=== PATIENT | male | born 1995 | race Caucasian/White ===

== ENCOUNTER 2022-01-17 22:38 | Emergency (ER) | payer BC ==
[2022-01-17] MEDS ORDERED: PREDNISONE20 M1 PO (23:04)
== END 2022-01-17 23:31 | disposition home or self-care (01) ==
LOC: ED 22:38
DX: L23.7 Allergic contact dermatitis due to plants, except food (principal)

== ENCOUNTER 2022-01-22 16:13 | Emergency (ER) | payer BC ==
[~2022-01-22] VITALS: Wt 117.9 kg
[~2022-01-22 16:13] MED LIST: PREDNISONE20 M1 PO
== END 2022-01-22 22:43 | disposition left against medical advice (07) ==
LOC: ED 16:13
DX: L23.7 Allergic contact dermatitis due to plants, except food (principal); Z53.21 Procedure and treatment not carried out due to patient leaving prior to being seen by health care provider

== ENCOUNTER 2022-01-24 17:58 | Emergency (ER) | payer BC | END 2022-01-24 19:22 | disposition left against medical advice (07) | LOC: ED 17:58 | DX: Z53.21 Procedure and treatment not carried out due to patient leaving prior to being seen by health care provider (principal) ==

== ENCOUNTER 2022-10-16 20:08 | Emergency (ER) | payer OTHER, BC ==
[2022-10-16] MEDS ORDERED: NAPROXEN250 MG PO (20:58)
[2022-10-16] MEDS ORDERED: METHOCARBAMOL750 M1 PO (20:58)
== END 2022-10-16 21:01 | disposition home or self-care (01) ==
LOC: ED 20:08
DX: S46.312A Strain of muscle, fascia and tendon of triceps, left arm, initial encounter (principal); X50.9XXA Other and unspecified overexertion or strenuous movements or postures, initial encounter; Y93.89 Activity, other specified; Y92.89 Other specified places as the place of occurrence of the external cause; Y99.8 Other external cause status

== ENCOUNTER 2023-01-03 15:02 | Emergency (ER) | payer BC, OTHER ==
[~2023-01-03 15:02] MED LIST changes: +METHOCARBAMOL750 M1 PO; +NAPROXEN250 MG PO
== END 2023-01-03 16:21 | disposition home or self-care (01) ==
LOC: ED 15:02
DX: S69.92XA Unspecified injury of left wrist, hand and finger(s), initial encounter (principal); Z79.899 Other long term (current) drug therapy; W22.8XXA Striking against or struck by other objects, initial encounter; Y93.89 Activity, other specified; Y92.89 Other specified places as the place of occurrence of the external cause; Y99.8 Other external cause status

== ENCOUNTER 2023-05-15 22:07 | Emergency (ER) | payer SELFPAY ==
[~2023-05-15] VITALS: Ht 187.9 cm; Wt 124.7 kg
== END 2023-05-15 23:29 | disposition home or self-care (01) ==
LOC: ED 22:07
DX: F43.9 Reaction to severe stress, unspecified (principal); R07.89 Other chest pain

== ENCOUNTER 2023-12-27 19:50 | Emergency (ER) | payer MEDICAID ==
[~2023-12-27] VITALS: Ht 187.9 cm; Wt 124.7 kg
[2023-12-27] MEDS ORDERED: PREDNISONE20 M1 PO (20:26)
[2023-12-27] MEDS ORDERED: methylPREDNISolone sod succ 125 MG VIAL IM ONE (20:30)
== END 2023-12-27 20:32 | disposition home or self-care (01) ==
LOC: ED 19:50
DX: L23.7 Allergic contact dermatitis due to plants, except food (principal)